=== PATIENT | female | born 1990 | race Caucasian/White ===

== ENCOUNTER 2024-02-24 16:57 | Inpatient (IN) | payer OTHER ==
[2024-02-24] MEDS ORDERED: ONDANSETRON 4 MG/2 ML VIAL ONE ×2 (17:13→21:06)
[2024-02-24] MEDS ORDERED: NA CHLORIDE 0.9% 1,000 ML ONE ×2 (17:14→21:08)
[2024-02-24] MEDS ORDERED: MORPHINE 4 MG/ML SYR ONE (17:14)
[2024-02-24 18:00] LABS: Absolute Basophils 0.1 K/uL (0-0.5); Absolute Eosinophils 0.4 K/uL (0-0.5); Absolute Lymphocytes (CBC) 2.3 K/uL (0.7-4.9); Absolute Monocytes 1.2 K/uL (0.1-1.3); Absolute Neutrophil 10.8 K/uL (1.8-8.0); Basophils % 0.6 % (0-1.3); Eosinophils % 2.8 % (0-4.4); Hematocrit 40.3 % (36.0-45.0); Hemoglobin 13.6 g/dL (12.0-15.0); Lymphocytes % 15.3 % (15.3-44.8); MCHC 33.8 g/dL (32.0-36.0); MCV 91.8 fL (80-100); MPV 7.1 fL (7.6-11.3); Monocytes % 7.9 % (3.3-12.3); Neutrophils % 73.4 % (41.7-73.7); Platelets 329 thou/uL (152-406); RBC Red Blood Cell Count 4.39 M/uL (3.86-4.86); Red Cell Distribution Width 13.4 % (12.1-15.2)
[2024-02-24 18:16] LABS: ALT/SGPT 19 U/L (13-56); Albumin 3.2 g/dL (3.4-5.0); Albumin/Globulin Ratio 0.9 (1.1-1.8); Alkaline Phosphatase 89 U/L (45-117); Anion Gap 8.3 mEq/L (5.0-15.0); BUN Blood Urea Nitrogen 11 mg/dL (7-18); Bicarbonate 28 mEq/L (21-32); Bilirubin Total 0.3 mg/dL (0.2-1.0); Globulin 3.5 g/dL (2.3-3.5); Glomerular Filtration Rate 97 ml/min (=/>90); Glucose Level 121 mg/dL (74-106); Potassium 3.3 mEq/L (3.5-5.1); Protein, Total 6.7 g/dL (6.4-8.2); Sodium Level 137 mEq/L (136-145)
[2024-02-24 18:17] LABS: PT Prothrombin Time 10.8 SECONDS (9.5-12.5); PTT, Activated Partial Thromb 30.4 SECONDS (24.3-36.9); Protime INR 0.98
[2024-02-24 18:20] LABS: AST/SGOT < 10 U/L (15-37)
--- NOTE | 2024-02-24 18:46 | RAD REPORT ---
EXAM DESCRIPTION: US - Extremity Venous Uni Ltd - 02/24/2024 6:33 pm CLINICAL HISTORY: Pain and swelling COMPARISON: None. TECHNIQUE: Real-time sonographic evaluation of the right lower extremity deep venous system was perf ormed. FINDINGS: Normal compressibility, flow augmentation, phasic flow and spontaneous flow is identified in the right lower extremity deep venous system. No intraluminal filling defects seen. IMPRESSION: No DVT in the right lower extremity.
[2024-02-24] MEDS ORDERED: FENTANYL CITR 100 MCG/2 ML ONE (19:10)
[2024-02-24] MEDS ORDERED: CLINDAMYCIN 600MG/D5W 50 ML IV ONE (19:15)
--- NOTE | 2024-02-24 19:34 | EDPHYS ---
Physician Documentation [facility] Name: Rosalina Shankar Age: 34 yrs Sex: Female : 1990 Arrival Date: 02/24/2024 Time: 16:57 Bed 5 Private MD: ED Physician Felipe Mcadams HPI: 02/23 17:04 This 34 yrs old Female presents to ER via Unassigned with complaints of Leg Swelling, kb Leg Pain. 17:04 Pt is a 34 year old female with a history of psoriasis who presents for bilateral leg kb pain. States she has been having a flare up of psoriasis for 3 months, was put on a steroid and antibiotic 2 weeks ago, was seen here one week ago and given a steroid shot that normally helps but this time symptoms have continued to increase. Reports diffuse rash started 3-4 days ago and she developed swelling to right leg last night. Reports chills, but does not have a thermometer. Friend reports pt felt hot. . 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 - Infectious Disease History:: Denies. - Social history:: Smoking status: Patient denies any tobacco usage or history of. ROS: 17:11 Constitutional: As per HPI kb Exam: 17:26 ECG was reviewed by the Attending Physician. kb 20:10 Constitutional: This is a well developed, well nourished patient who is awake, alert, kb and in no acute distress. Head/Face: Normocephalic, atraumatic. ENT: Moist Mucous membranes Cardiovascular: Regular rate Respiratory: Respirations even and unlabored. No increased work of breathing. Talking in full sentences Abdomen/GI: Soft, non-tender. No distention Neuro: Awake and alert, GCS 15, oriented to person, place, time, and situation. Moves all extremities. Normal gait. 20:10 Skin: psoriasis plaques noted diffusely. erythema and swelling to lower extremities, worse on the right. Vital Signs: 17:13 BP 117 / 85; Pulse 117; Resp 18; Temp 98.8; Pulse Ox 98% ; Weight 77.11 kg; Height 5 as6 ft. 10 in. ; Pain 8/10; 18:05 BP 127 / 86; Pulse 101; Resp 18 S; Pulse Ox 100% on R/A; kc6 18:57 BP 149 / 84; Pulse 96; Resp 18 S; Pulse Ox 100% on R/A; kc6 19:30 BP 143 / 99; Pulse 75; Resp 17 S; Pulse Ox 99% on R/A; jw7 20:17 BP 109 / 75; Pulse 70; Resp 17 S; Pulse Ox 100% on R/A; ha1 21:00 BP 122 / 97; Pulse 86; Resp 17 S; Pulse Ox 100% on R/A; jw7 22:00 BP 137 / 85; Pulse 74; Resp 17 S; Pulse Ox 100% on R/A; jw7 17:13 Body Mass Index 24.39 (77.11 kg, 177.8 cm) as6 17:13 Pain Scale: Adult as6 MDM: 17:02 Patient medically screened. kb 17:14 Data reviewed: vital signs, nurses notes. kb 19:34 Management of patient was discussed with the following: Hospitalist: Dr Jeana conway recommends transfer for rheumatology. . 19:45 ED course: attempted transfer to [facility] and [facility]. No bankruptcy paralegal kb available at any of those facilities. . 20:16 Consideration of Admission/Observation Patient was admitted/placed on observation. kb Escalation of care including admission/observation considered. Management of patient was discussed with the following: Hospitalist: Dr Hills accepts pt for admission. Counseling: I had a detailed discussion with the patient and/or guardian regarding the historical points, exam findings, and any diagnostic results supporting the discharge/admit diagnosis, lab results, radiology results, the need for further work-up and treatment in the hospital. 02/23 17:10 Order name: Blood Culture Adult (2) kb 02/23 17:10 Order name: CBC with Diff; Complete Time: 18:15 kb 02/23 17:10 Order name: CMP; Complete Time: 18:23 kb 02/23 17:10 Order name: Lactate w/ 2H reflex if indic.; Complete Time: 18:43 kb 02/23 17:10 Order name: Protime (+inr); Complete Time: 18:18 kb 02/23 17:10 Order name: Ptt, Activated; Complete Time: 18:18 kb 02/23 20:32 Order name: Liver (Hepatic) Function EDMS 02/23 20:32 Order name: CBC with Automated Diff EDMS 02/23 20:32 Order name: CBC with Automated Diff EDMS 02/23 20:32 Order name: Comprehensive Metabolic Panel EDMS 02/23 20:32 Order name: Comprehensive Metabolic Panel EDRI 02/23 20:32 Order name: Creatine Phosphokinase EDRI 02/23 20:32 Order name: Creatine Phosphokinase EDMS 02/23 20:32 Order name: Creatine Phosphokinase EDMS 02/23 20:32 Order name: Creatine Phosphokinase EDRI 02/23 21:33 Order name: Lactate Sepsis 2 HR Follow-up; Complete Time: 21:39 EDMS 02/23 17:10 Order name: US Extremity Venous Unilateral Ltd; Complete Time: 18:50 kb 02/23 17:10 Order name: Accucheck; Complete Time: 17:55 kb 02/23 17:10 Order name: Cardiac monitoring; Complete Time: 17:26 kb 02/23 17:10 Order name: IV Saline Lock - Large Bore; Complete Time: 17:55 kb 02/23 17:10 Order name: Labs collected and sent; Complete Time: 17:55 kb 02/23 17:10 Order name: O2 Per Protocol; Complete Time: 17:26 kb 02/23 17:10 Order name: O2 Sat Monitoring; Complete Time: 17:26 kb 02/23 17:10 Order name: Vital Signs; Complete Time: 17:26 kb EC:26 Rate is 95 beats/min. Rhythm is regular. QRS [place] is Normal. [place] interval is normal at kb 132 msec. QRS interval is normal at 82 msec. QT interval is normal at 434 msec. Administered Medications: 17:55 Drug: morphine IVP or IV 4 mg IVP once over 4 mins Route: IVP; Infused Over: 4 mins; 6 Site: left wrist; 18:55 Follow up: Response: No adverse reaction; Pain is unchanged, physician notified; RASS: [facility] Alert and Calm (0) 17:55 Drug: Ondansetron IVP 4 mg IVP once; over 2 minutes Route: IVP; Site: left wrist; [facility] 18:56 Follow up: Response: No adverse reaction kc6 17:56 Drug: NS 0.9% IV 1000 ml IV at 1000 ml once Route: IV; Rate: 1000 ml; Site: left wrist; kc6 22:07 Follow up: Response: No adverse reaction; IV Status: Completed infusion; IV Intake: jw7 1000ml 19:10 Drug: fentaNYL (PF) IVP 25 mcg IVP once Route: IVP; Site: left wrist; jw7 19:30 Follow up: Response: No adverse reaction; Pain is decreased; RASS: Alert and Calm (0) ha1 19:21 Not Given (Other Intervention Used): [id number] mg IVPB once over 30 mins; (mix in jw7 50 mL) 19:22 Drug: Clindamycin IVPB 600 mg IVPB once over 30 mins; (mix in 50 mL) Route: IVPB; jw7 Infused Over: 30 mins; Site: left wrist; 19:55 Follow up: Response: No adverse reaction; IV Status: Completed infusion; IV Intake: [id number] Disposition Summary: 02/24/24 20:17 Hospitalization Ordered Notes: Hospitalization Status: Observation kb Provider: Anisa Hills Location: Telemetry/MedSurg (observation) kb Condition: Stable(02/24/24 20:17) kb Problem: new(02/24/24 20:17) kb Symptoms: are unchanged(02/24/24 20:17) kb Bed/Room Type: Standard kb Room Assignment: 220(02/24/24 20:35) sp Diagnosis - Severe sepsis without septic shock(02/24/24 20:17) kb - Cellulitis of right lower limb(02/24/24 20:17) kb - Psoriasis, unspecified(02/24/24 20:17) kb Forms: - Medication Reconciliation Form kb - SBAR form kb - Leadership Thank You Letter kb Signatures: Dispatcher [employer] Marcela Lubin, DANIEL BAEZP-Pina Adorno Ashby, RN RN as6 Marilia Melgar RN RN jw7 Jeanie Poole RN RN kc6 Farida Pelayo RN ha1 Corrections: (The following items were deleted from the chart) 17:09 17:04 Pt is a 34 year old female with a history of psoriasis who presents for . kb kb 17:11 17:11 BLOOD CULTURE*+BA.LAB.BRZ ordered. EDMS EDMS 17:11 17:11 CBC+H.LAB.BRZ ordered. EDMS EDMS 17:11 17:11 COMPREHENSIVE METABOLIC PANEL+C.LAB.BRZ ordered. EDMS EDMS 17:11 17:11 LACTATE+C.LAB.BRZ ordered. EDMS EDMS 17:11 17:11 PROTIME (+INR)+COAG.LAB.BRZ ordered. EDMS EDMS 17:11 17:11 PTT, ACTIVATED+COAG.LAB.BRZ ordered. EDMS EDMS 20:17 19:33 Dr kb kb 20:17 19:33 [facility] kb kb 20:17 19:33 Higher level of care kb kb 20:17 19:33 Stable kb kb 20:17 19:33 new kb kb 20:17 19:33 are unchanged kb kb 20:17 19:33 Cellulitis of right lower limb kb kb 20:17 19:33 Severe sepsis without septic shock kb kb 20:17 19:33 Psoriasis, unspecified kb kb 20:35 20:17 kb sp
--- NOTE | 2024-02-24 19:34 | ER ---
Nurse's Notes [facility] Name: Rosalina Shankar Age: 34 yrs Sex: Female : 1990 Arrival Date: 02/24/2024 Time: 16:57 Bed 5 Private MD: Diagnosis: Severe sepsis without septic shock;Cellulitis of right lower limb;Psoriasis, unspecified Presentation: 02/23 17:14 Chief complaint: Patient states: have a bad psoriasis flair up and right leg swelling as6 that just started. Coronavirus screen: At this time, the client does not indicate any symptoms associated with coronavirus-19. Ebola Screen: No symptoms or risks identified at this time. Initial Sepsis Screen: Does the patient meet any 2 criteria? No. Patient's initial sepsis screen is negative. Does the patient have a suspected source of infection? No. Patient's initial sepsis screen is negative. Risk Assessment: Do you want to hurt yourself or someone else? Patient reports no desire to harm self or others. Onset of symptoms was February 24, 2024. 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 - Infectious Disease History:: Denies. - Social history:: Smoking status: Patient denies any tobacco usage or history of. Screenin:04 [facility] ED Fall Risk Assessment (Adult) History of falling in the last 3 months, kc6 including since admission No falls in past 3 months (0 pts) Confusion or Disorientation No (0 pts) Intoxicated or Sedated No (0 pts) Impaired Gait No (0 pts) Mobility Assist Device Used No (0 pt) Altered Elimination No (0 pt) Score/Fall Risk Level 0 - 2 = Low Risk. Abuse screen: Denies threats or abuse. Denies injuries from another. Nutritional screening: No deficits noted. Tuberculosis screening: No symptoms or risk factors identified. Assessment: 18:05 General: Appears in no apparent distress. uncomfortable, well developed, Behavior is kc6 cooperative, anxious, crying. Pain: Complains of pain in back, chest, abdomen, right arm, left arm, right leg and left leg Pain currently is 10 out of 10 on a pain scale. Quality of pain is described as throbbing. Neuro: Level of Consciousness is awake, alert, obeys commands, Oriented to person, place, time, situation, Appropriate for age. Cardiovascular: Capillary refill < 3 seconds. Respiratory: Airway is patent Trachea midline Respiratory effort is even, unlabored, Respiratory pattern is regular, symmetrical. GI: No signs and/or symptoms were reported involving the gastrointestinal system. : No signs and/or symptoms were reported regarding the genitourinary system. EENT: No signs and/or symptoms were reported regarding the EENT system. Derm: Skin is fragile, Skin is dry, Skin is red, Skin temperature is warm Rash noted that is itchy, red, on back, chest, abdomen, right arm, left arm, right leg and left leg. Musculoskeletal: Circulation, motion, and sensation intact. Range of motion: intact in all extremities, Swelling present in right leg. 18:57 Reassessment: Patient appears in no apparent distress at this time. No changes from kc6 previously documented assessment. Patient and/or family updated on plan of care and expected duration. Pain level reassessed. Patient is alert, oriented x 3, equal unlabored respirations, skin warm/dry/pink. 19:00 General: Appears in no apparent distress. uncomfortable, Behavior is calm, cooperative. jw7 Pain: Complains of pain in left leg and right leg and left arm and right arm and abdomen and chest and back Pain does not radiate. Pain currently is 8 out of 10 on a pain scale. Quality of pain is described as throbbing, Pain began gradually, Is continuous. Neuro: Level of Consciousness is awake, alert, obeys commands, Oriented to person, place, time, situation, Appropriate for age. Cardiovascular: Capillary refill < 3 seconds Clubbing of nail beds is absent JVD is absent Patient's skin is warm and dry. Respiratory: Airway is patent Trachea midline Respiratory effort is even, unlabored, Respiratory pattern is regular, symmetrical. GI: Abdomen is flat, non-distended, Bowel sounds present X 4 quads. Abd is soft and non tender X 4 quads. : No deficits noted. No signs and/or symptoms were reported regarding the genitourinary system. EENT: No deficits noted. No signs and/or symptoms were reported regarding the EENT system. Derm: Skin is fragile, Skin is dry, Skin is red, Skin temperature is warm Rash noted that is itchy, red, on left leg and right leg and left arm and right arm and abdomen and chest and back. Musculoskeletal: Circulation, motion, and sensation intact. Range of motion: intact in all extremities, Swelling present in right leg. 20:05 Reassessment: Patient and/or family updated on plan of care and expected duration. Pain ha1 level reassessed. Patient is alert, oriented x 3, equal unlabored respirations, skin warm/dry/pink. 21:00 Reassessment: Patient appears in no apparent distress at this time. No changes from 7 previously documented assessment. Patient and/or family updated on plan of care and expected duration. Pain level reassessed. Patient is alert, oriented x 3, equal unlabored respirations, skin warm/dry/pink. 22:00 Reassessment: Patient appears in no apparent distress at this time. No changes from jw7 previously documented assessment. Patient and/or family updated on plan of care and expected duration. Pain level reassessed. Patient is alert, oriented x 3, equal unlabored respirations, skin warm/dry/pink. Vital Signs: 17:13 BP 117 / 85; Pulse 117; Resp 18; Temp 98.8; Pulse Ox 98% ; Weight 77.11 kg; Height 5 as6 ft. 10 in. ; Pain 8/10; 18:05 BP 127 / 86; Pulse 101; Resp 18 S; Pulse Ox 100% on R/A; kc6 18:57 BP 149 / 84; Pulse 96; Resp 18 S; Pulse Ox 100% on R/A; kc6 19:30 BP 143 / 99; Pulse 75; Resp 17 S; Pulse Ox 99% on R/A; jw7 20:17 BP 109 / 75; Pulse 70; Resp 17 S; Pulse Ox 100% on R/A; ha1 21:00 BP 122 / 97; Pulse 86; Resp 17 S; Pulse Ox 100% on R/A; jw7 22:00 BP 137 / 85; Pulse 74; Resp 17 S; Pulse Ox 100% on R/A; jw7 17:13 Body Mass Index 24.39 (77.11 kg, 177.8 cm) as6 17:13 Pain Scale: Adult as6 ED Course: 17:00 Patient arrived in ED. mg5 17:01 Marcela Ramon FNP-C is [facility]. kb 17:01 Felipe Mcadams MD is Attending Physician. kb 17:13 Sadia Lira, RN is Primary Nurse. db 17:13 Arm band placed on. as6 17:15 Triage completed. as6 17:26 EKG done, by ED staff, reviewed by Marcela SANCHEZ. kc6 17:33 Missed attempt(s): 22 gauge in right wrist. Bleeding controlled, band aid applied, sm8 catheter tip intact. 17:35 Patient has correct armband on for positive identification. Placed in gown. Bed in low kc6 position. Call light in reach. Side rails up X 1. Adult w/ patient. Pulse ox on. NIBP on. Door closed. Noise minimized. Lights dimmed. 17:35 Inserted saline lock: 22 gauge in left wrist, using aseptic technique. Blood collected. kc6 18:35 Extremity Venous Unilateral Ltd In Process Unspecified. EDMS 19:00 Provided Education on: Use of Call Light. jw7 19:[address] [facility] transfer talked to Amy Rhheumatology. sp 19:32 called [facility] talked to Anastasiya guerra Rheumatology. sp 19:42 called [facility] for transfer talked to Robert. sp 19:44 per [facility] mari beds at [facility] at this time. sp 20:17 Anisa Hills MD is Hospitalizing Provider. kb 22:07 No provider procedures requiring assistance completed. Patient admitted, IV remains in jw7 place. Administered Medications: 17:55 Drug: morphine IVP or IV 4 mg IVP once over 4 mins Route: IVP; Infused Over: 4 mins; kc6 Site: left wrist; 18:55 Follow up: Response: No adverse reaction; Pain is unchanged, physician notified; RASS: kc6 Alert and Calm (0) 17:55 Drug: Ondansetron IVP 4 mg IVP once; over 2 minutes Route: IVP; Site: left wrist; kc6 18:56 Follow up: Response: No adverse reaction kc6 17:56 Drug: NS 0.9% IV 1000 ml IV at 1000 ml once Route: IV; Rate: 1000 ml; Site: left wrist; kc6 22:07 Follow up: Response: No adverse reaction; IV Status: Completed infusion; IV Intake: jw7 1000ml 19:10 Drug: fentaNYL (PF) IVP 25 mcg IVP once Route: IVP; Site: left wrist; jw7 19:30 Follow up: Response: No adverse reaction; Pain is decreased; RASS: Alert and Calm (0) ha1 19:21 Not Given (Other Intervention Used): [id number] mg IVPB once over 30 mins; (mix in jw7 50 mL) 19:22 Drug: Clindamycin IVPB 600 mg IVPB once over 30 mins; (mix in 50 mL) Route: IVPB; jw7 Infused Over: 30 mins; Site: left wrist; 19:55 Follow up: Response: No adverse reaction; IV Status: Completed infusion; IV Intake: [id number] Medication: 22:08 VIS not applicable for this client. jw7 Intake: 19:55 IV: 50ml; Total: 50ml. ha1 22:07 IV: 1000ml; Total: 1050ml. jw7 Outcome: 19:33 ER care complete, transfer ordered by . zoraida 20:17 Decision to Hospitalize by Provider. kb 22:07 Admitted to Med/surg accompanied by tech, via stretcher, room 220, jw7 22:07 Condition: stable 22:07 Instructed on the need for admit, Demonstrated understanding of instructions, 22:08 Patient left the ED. jw7 Signatures: Dispatcher [employer] EDMS Marcela Ramon, DIAZO TECHNICIAN-C DIAZO TECHNICIAN-CkPina Bobby Ashby, RN RN as6 Marilia Melgar RN RN jw7 Farida Pelayo RN RN ha1 Jeanie Poole RN RN [email or web address] Sadia Lira RN RN Jolene Wade [place]x [place] 5 Corrections: (The following items were deleted from the chart) 19:31 19:24 called [facility]'s transfer talked to Andrea and no Rhheumatology jose garcia
--- NOTE | 2024-02-24 20:25 | P.HP ---
Certification for Inpatient Patient admitted to: Inpatient With expected LOS: >2 Midnights Patient will require the following post-hospital care: None Practitioner: I am a practitioner with admitting privileges, knowledge of patient current condition, hospital course, and medical plan of care. Services: Services provided to patient in accordance with Admission requirements found in Title 42 Section 412.3 of the Code of Federal Regulations Patient History Date of Service: 02/24/24 Reason for admission: Leg pain and generalized rash History of Present Illness: 34-year-old female with past medical history of uncontrolled psoriasis, previous psoriasis arthritis, previously followed with rheumatology at [facility], previously was on Skyrizi stopped taking over a year ago due to lack of insurance; developed worsening psoriatic rash with erythematous patches all over the body. She presented to the ED today because of worsening pain redness and swelling of bilateral knees. She states symptoms are similar to her previous psoriatic arthritis flareup. She states she was seen in an emergency room 1 week ago and I will prescribe Solu-Medrol pack which she has taking with no improvement in symptoms. Her bilateral knee pain continue to worsen associated with worsening redness of bilateral lower legs. She denies any nausea or vomiting she denies any fever or chills. She rated pain in the knees as well as all over the legs and generalized body as about 9-10 out of 10. 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 On arrival in the ED vital signs were stable afebrile, WBC was 14 with left shift, BMP was unremarkable except for glucose of 131, lactic acid was elevated at 2.2. Doppler ultrasound of the bilateral lower extremity shows no DVT. Attempt was made to transfer patient to center with available rheumatology but was subsequently declined. She has been admitted for further management. Blood culture x 2 have been obtained. Clindamycin and IV morphine will give a BPSD continue IM Dilaudid was also given in the emergency room Home medications list reviewed: Yes - Past Medical/Surgical History Has patient received pneumonia vaccine in the past: No -: Psoriasis -: Psoriatic arthritis Past Surgical History: Reviewed- Non-Contributory -: None - Family History Family History: Reviewed- Non-Contributory - Social History Smoking Status: Never smoker Smoking therapy provided: No Patient receptive to therapy: No Alcohol use: No CD- Drugs: No Caffeine use: No Place of Residence: Home Review of Systems General: Weakness Musculoskeletal: Leg Pain, Foot Pain Integumentary: Rash, Lesions Physical Examination - Physical Exam General: Alert, In no apparent distress, Oriented x3, Cooperative (-Young female) HEENT: Atraumatic, Normocephalic, PERRLA Neck: 2+ carotid pulse no bruit, JVD not distended, No Thyromegaly Respiratory: Clear to auscultation bilaterally, Normal air movement Cardiovascular: No edema, Regular rate/rhythm, Normal S1 S2 Gastrointestinal: Normal bowel sounds, Soft and benign, Non-distended, No ascites, No masses Musculoskeletal: Swelling, Erythema, Tenderness (Over bilateral lower extremity) Integumentary: Rash(es) (Diffuse patchy circular rash all over the body including back trunk and over bilateral extremities) Neurological: Normal speech, Normal strength at 5/5 x4 extr, Sensation intact, Cranial nerves 3-12 intact External genitalia: No edema - Studies Laboratory Data (last 24 hrs) 02/24/24 02/24/24 02/24/24 17:35 17:35 17:35 WBC 14.70 H Hgb 13.6 Hct 40.3 Plt Count 329 PT 10.8 INR 0.98 APTT 30.4 Sodium 137 Potassium 3.3 L BUN 11 Creatinine 0.82 Glucose 121 H Total Bilirubin 0.3 AST < 10 L ALT 19 Alkaline Phosphatase 89 Assessment and Plan - Problems (Diagnosis) (1) Psoriasis geographica Current Visit: Yes Status: Acute (2) Psoriatic arthritis of multiple joints Current Visit: Yes Status: Acute - Plan Impression Acute psoriatic arthritis with flare Lower extremity erythemapossibly due to psoriatic arthritis versus cellulitis Lactic acidemia/sepsis Intractable bilateral knee pain Plan Will admit patient to observation Start empirical antibiotics with Vanco Follow blood culture x 2 Pain control with IV morphine as needed As needed medication for nausea Generalized psoriasis with failure of her oral steroids, will do IV steroids now and follow Patient may benefit from transfer or outpatient visit to center with rheumatology, may benefit from nonsteroid immunosuppressive therapy given generalized pattern of psoriasis. Gentle IV fluid Follow lactic acid trend Possible DC in a.m. if negative blood culture Lovenox for DVT prophylaxis Total time spent in evaluation of patient discussion, regarding possibility of more severe immunosuppressive therapy required as well as rheumatology input explained to patient. Since not been accepted at higher levels of care at this time, will admit temporarily for empirical management for now - Advance Directives Does patient have a Living Will: No Does patient have a Durable POA for Healthcare: No Time Spent Managing Pts Care (In Minutes): 70
[2024-02-24] MEDS ORDERED: ACETAMINOPHEN 500 MG TAB PO PRN (20:26)
[2024-02-24] MEDS: POTASSIUM CL SA 10 MEQ TAB PO ONE (20:31)
[2024-02-24] MEDS: FAMOTIDINE 20 MG TAB PO SCH (21:00)
[2024-02-24] MEDS: VANCOMYCIN 1 GM in NA CHLORIDE 0.9% 250 ML IVPB SCH (21:00)
[2024-02-24] MEDS: NA CHLORIDE 0.9% 1,000 ML IV SCH (21:00)
[2024-02-24] MEDS ORDERED: VANCOMYCIN 1 GM/VIAL ONE (21:06)
[2024-02-24] MEDS ORDERED: FAMOTIDINE 20 MG TAB ONE (21:06)
[2024-02-24] MEDS ORDERED: MORPHINE 2 MG/ML SYR ONE (21:07)
[2024-02-24] MEDS ORDERED: POTASSIUM CL SA 10 MEQ TAB PO ONE (21:07)
[2024-02-24] MEDS ORDERED: NA CHLORIDE 0.9% 250 ML ONE (21:08)
[2024-02-24] MEDS: MORPHINE 2 MG/ML SYR IV PRN (21:26)
[2024-02-24] MEDS: ONDANSETRON 4 MG/2 ML VIAL IV PRN (21:27)
[2024-02-24] MEDS: VANCOMYCIN 500 MG in NA CHLORIDE 0.9% 100 ML IVPB ONE (21:30)
[2024-02-24] MEDS: Oxycodone HCl/Acetaminophen 5/325 MG TAB PO PRN (22:21)
[2024-02-24 22:27] VITALS: O2SAT 100
[2024-02-24] MEDS: LORAZEPAM 1 MG TABLET PO ONE (22:44)
[2024-02-24 23:36] VITALS: BMI 24.3
[2024-02-25] MEDS: METHYLPREDNISOLONE 125 MG INJ IV SCH (00:09)
[2024-02-25] MEDS: MORPHINE 4 MG/ML SYR IV PRN (01:53)
[2024-02-25 05:08] LABS: Absolute Basophils 0.1 K/uL (0-0.5); Absolute Eosinophils 0.1 K/uL (0-0.5); Absolute Lymphocytes (CBC) 0.9 K/uL (0.7-4.9); Absolute Monocytes 0.3 K/uL (0.1-1.3); Absolute Neutrophil 15.1 K/uL (1.8-8.0); Basophils % 0.3 % (0-1.3); Eosinophils % 0.9 % (0-4.4); Hematocrit 38.6 % (36.0-45.0); Hemoglobin 12.7 g/dL (12.0-15.0); Lymphocytes % 5.4 % (15.3-44.8); MCH 30.4 pg (27.0-35.0); MCHC 32.9 g/dL (32.0-36.0); MCV 92.3 fL (80-100); MPV 7.7 fL (7.6-11.3); Neutrophils % 91.4 % (41.7-73.7); Platelets 298 thou/uL (152-406); RBC Red Blood Cell Count 4.18 M/uL (3.86-4.86); Red Cell Distribution Width 13.3 % (12.1-15.2)
[2024-02-25 05:35] LABS: ALT/SGPT 19 U/L (13-56); Albumin 2.9 g/dL (3.4-5.0); Albumin/Globulin Ratio 0.9 (1.1-1.8); Alkaline Phosphatase 69 U/L (45-117); Anion Gap 5.2 mEq/L (5.0-15.0); BUN Blood Urea Nitrogen 8 mg/dL (7-18); Bicarbonate 25 mEq/L (21-32); Bilirubin Total 0.3 mg/dL (0.2-1.0); Creatine Phosphokinase 45 U/L (26-192); Globulin 3.2 g/dL (2.3-3.5); Glomerular Filtration Rate 121 ml/min (=/>90); Glucose Level 126 mg/dL (74-106); Potassium 4.2 mEq/L (3.5-5.1); Protein, Total 6.1 g/dL (6.4-8.2); Sodium Level 137 mEq/L (136-145)
[2024-02-25 05:36] LABS: AST/SGOT < 10 U/L (15-37); Bilirubin Direct < 0.2 mg/dL (0-0.2)
[2024-02-25 06:07] LABS: Blood Morphology Comment NOT SEEN (NOT SEEN)
[2024-02-25 06:08] LABS: Band Neutrophils 3 % (0-1); Differential Total Cells Count 100; Eosinophils 1 % (0-3); Lymphocytes 5 % (15-42); Monocytes 3 % (0-10); Platelet Estimate ADEQ; Segmented Neutrophils 88 % (40-80)
--- NOTE | 2024-02-25 09:18 | P.PN ---
Date of Service: 02/25/24 Subjective: reports worsening bilateral lower extremity pains, redness is spreading feels deep pains to the bones / nerves. Severe burning sensation in nature feels toradol helped when she was here in the ER a few days ago redness/erythema is completely new started after her ER visit ~2 weeks ago. Has mainly been dealing with pain prior to this episode redness significantly worsened Sunday night going into Sunday. 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 diagnosed with psoriasis at age 15 was doing well on Skyrizi for a few years, then for some reason stopped it - ?insurance, ~1.5 years ago since stopping, she has slowly had worsening of her typical plaque psoriasis feels she gets "hives" every so often whe she gets stressed ~3-4 weeks ago had bad arthritic pain - saw her PCP who discussed getting her back on Skyrizi, meanwhile was given a dose of methotrexate she reports after receiving MTX, she had severely worsening of her psoriatic plaques - thicker, cracking, bleeding, painful ~1 week later she presented to urgent care/ED due to worsening plaques / pain given steroid shot and dc'd home; continued to take prednisone and clinda as presccribed now worsening after hospitalized as well avoid sytemic steroids except for prednisone taper suspect high dose systemic steroids and overuse of topical steroid set this off. possiblty methotrexate previously followed with rheumatology at [place], She does not have a current at risk specialist in [place] now. lives in [facility]; here visiting family previously was on Skyrizi for ~2 years. Stopped > 1 yr ago due to lack of insurance / cost. Venous u/s (02/24): No DVT of right lower extremity Unclear etiology - seems more inflammatory in nature. less likely infectious. toradol added (02/24) - patient feels like it helped when she was here in the ER a few days ago pain control with IV morphine / PO percocet 5/325 BP intermittently low-normal. monitor BP closely. continue empiric vanc for now (02/24-) dc vanc, can be a trigger for erythodermic psoriasis no obvious infxn taper steroids pt has received 2-3 125mg doses of solumedrol in last 2 weeks, as well as prednisone taper will do short taper, 20mg daily x2 days continue IV Fluids VTE: Ambulatory Code: Full Dispo: Home, ~2-3 days Pending better pain control / WBC improves Attempted to transfer to tertiary center with available rheumatology but was declined overnight. if worsening, can attempt transfer tomorrow discussed with patient since she received solumedrol, rash will continue to spread as we wean down steroids
[2024-02-25] MEDS: VANCOMYCIN 1.5 GM in NA CHLORIDE 0.9% 500 ML IVPB SCH (10:17)
[2024-02-25] MEDS: KETOROLAC 30 MG/ML INJ IV PRN (10:25)
[2024-02-25] MEDS: HYDROMORPHONE HCL 1 MG/ML INJ IV PRN (12:23)
--- NOTE | 2024-02-25 15:41 | CON ---
History Of Present Illness: This 34-year-old female, Rosalina Shankar, with the significant history of uncontrolled psoriasis, not on her treatment for 1 year because of funding. Patient was on Skyrizi. Patient is visiting from [facility]. Complains of knee discomfort and generalized aches and pains with the erythematous rash all across her body involving lower extremity, abdomen, chest, and back, reaching all the way up to neck. Multiple areas of patches of psoriasis are also noted by her. Past Medical History: Psoriasis and psoriatic arthritis, not on treatment. She was given steroids in the ER. Social History: Nonsmoker. Nondrinker. Family History: Noncontributory. Medications: Solu-Medrol 60 mg IV q.6 hours. Vancomycin. See MARs for other medications. Allergies: MAGNESIUM SULFATE AND PENICILLIN. Review of Systems: A 10-point review was performed. Physical Examination: Vital Signs: Temperature 97, General: Patient is sitting in bed. Family by the bedside, not in any acute cardiopulmonary distress. HEENT: Unremarkable. Neck: Supple. Lungs: Clear to auscultation. Heart: S1, S2. Regular. Abdomen: Soft, nontender. Bowel sounds present. Extremity: Trace edema. Erythematous changes noted on lower extremity, abdomen, chest and back and neck Laboratory Data: Shows WBC 16,000, most likely due to steroids. Hemoglobin 12.7, platelets 298. Chemistry shows BUN of 8, creatinine 0.6. Lactic acid 1.6. Procalcitonin pending. Assessment And Plan: Reactive psoriatic skin disease. There are patchy areas of suspicion of possible infection. Leukocytosis is most likely secondary to steroids. We will recommend to switch patient to doxycycline or Bactrim DS 1 tab p.o. b.i.d., and to be seen by Rheumatology service for further evaluation. Clinically, patient is doing better except her rash which is most likely secondary to her psoriatic disease or rheumatological condition. Consider getting a skin biopsy, if not improving. Consider transferring patient to speciality care rheumatology services currently available. We will follow the patient as needed. Thank you for consult. YUE/CHRISTOFER Voice ID: [id number] Report ID: [id number] [facility] CENTERJesica
--- NOTE | 2024-02-25 16:29 | CON ---
History Of Present Illness: The patient is a 34-year-old female. DICTATION ENDS HERE YUE/CHRISTOFER Voice ID: [id number] Report ID: [id number]
[2024-02-25] MEDS: DIPHENHYDRAMINE 50 MG/ML VIAL IV ONE (16:33)
[2024-02-25] MEDS: DIPHENHYDRAMINE 25 MG TAB/CAP PO PRN (18:41)
[2024-02-25] MEDS: PETROLATUM (AQUAPHOR) JAR 396 GRAM TOP PRN (20:58)
[2024-02-26] MEDS: ESZOPICLONE 1 MG TAB PO PRN (00:01)
[2024-02-26] MEDS: predniSONE 20 MG TAB PO SCH (08:08)
[2024-02-26] MEDS ORDERED: METHYLPREDNISOLONE 40 MG INJ IV SCH (09:00)
[2024-02-26 09:37] LABS: Absolute Eosinophils 0.3 K/uL (0-0.5); Absolute Lymphocytes (CBC) 2.3 K/uL (0.7-4.9); Absolute Monocytes 1.6 K/uL (0.1-1.3); Absolute Neutrophil 18.4 K/uL (1.8-8.0); Basophils % 0.2 % (0-1.3); Eosinophils % 1.4 % (0-4.4); Hematocrit 35.3 % (36.0-45.0); Hemoglobin 11.9 g/dL (12.0-15.0); Lymphocytes % 10.2 % (15.3-44.8); MCHC 33.7 g/dL (32.0-36.0); MPV 7.2 fL (7.6-11.3); Monocytes % 7.1 % (3.3-12.3); Neutrophils % 81.1 % (41.7-73.7); Platelets 302 thou/uL (152-406); RBC Red Blood Cell Count 3.84 M/uL (3.86-4.86); Red Cell Distribution Width 13.4 % (12.1-15.2)
[2024-02-26 09:59] LABS: Albumin 2.9 g/dL (3.4-5.0); Bilirubin Total 0.2 mg/dL (0.2-1.0); C-Reactive Protein 26.7 mg/L (<3.00); Magnesium 1.8 mg/dL (1.6-2.4); Protein, Total 5.9 g/dL (6.4-8.2)
[2024-02-26 10:30] LABS: Band Neutrophils 2 % (0-1); Blood Morphology Comment NOT SEEN (NOT SEEN); Differential Total Cells Count 100; Lymphocytes 10 % (15-42); Monocytes 8 % (0-10); Platelet Estimate ADEQ; Segmented Neutrophils 80 % (40-80)
--- NOTE | 2024-02-26 13:59 | P.PN ---
Subjective Date of Service: 02/26/24 Chief Complaint: Leg pain and generalized rash Patient is complaining of uncontrolled generalized pain and itching. She admits to IV access last night. No recorded fever. She states her rash is worse compared to yesterday. Physical Examination - Vital Signs Temperature: 99.0 F Blood Pressure: 114/58 Pulse: 75 Respirations: 16 Pulse Ox (%): 99 Assessment And Plan - Plan Physical Exam: GEN: Alert, oriented, tearful. HEENT: Normal conjunctiva, sclera anicteric, CV: Regular rate and rhythm, b/l lower extremity edema Pulm: Nonlabored respirations, clear bilaterally GI: Abdomen is soft, nontender nondistended, normal bowel sounds, no organomegaly. Integumentary: Diffuse erythema with facial involvement, psoriatic plaques in extremities chest/back, no purulent drainage. 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 She reported slowly worsening plaque psoriasis. She presented with bilateral lower extremity swelling and erythema, symptoms associated with intermittent hives, pruritus and arthritic pain. She saw her PCP about 1 month ago who discussed getting her back on Skyrizi, meanwhile was given a dose of methotrexate She reports her psoriatic plaques severely got worse with cracking, bleeding, and more pain after taking the methotrexate She then presented to urgent care and was given a shot of IV steroid, and discharge with prednisone and clindamycin. She was again given a dose of IV steroid on presentation this hospitalization. previously followed with rheumatology at [place]. She stated she lives in [facility]; here visiting family. Venous u/s (02/24): No DVT of right lower extremity Patient is currently on prednisone taper. Worsening rashes. Supportive measures with analgesics as needed. Patient is off antibiotics. Initiated transfer to tertiary center to be evaluated and treated by fine arts packer or bellows assembler. continue IV Fluids VTE: Ambulatory Code: Full Dispo: Initiated transfer to tertiary [place]
--- NOTE | 2024-02-26 15:12 | EKG ---
Test Date: 2024-02-24 Test Time: 17:23:45 Sock Knitting Machine Operator: SHANTELL MEASUREMENT RESULTS: Intervals: Rate: 95 ME: 132 QRSD: 82 QT: 346 QTc: 434 [place]: P: 83 ME: 132 QRS: 74 T: 57 INTERPRETIVE STATEMENTS: Normal sinus rhythm Normal ECG No previous ECG available for comparison Electronically Signed On 02-26-24 15:07:06 CDT by Kana Hicks
[2024-02-26] MEDS: PROMETHAZINE INJ 25 MG/ML AMP IV PRN (18:04)
[2024-02-26] MEDS: Mupirocin NASAL 2 APPL/1 GM TUBE NAS SCH (20:35)
--- NOTE | 2024-02-26 20:37 | P.DS ---
Admission Date: 02/24/24 Discharge Date: 02/26/24 Disposition: TRANSFER TO [facility] Discharge Condition: FAIR Reason for Admission: Leg pain and generalized rash Brief History of Present Illness: 34-year-old female with past medical history of uncontrolled psoriasis, previous psoriasis arthritis, previously followed with rheumatology at [place], previously was on Skyrizi stopped taking over a year ago due to lack of insurance; developed worsening psoriatic rash with erythematous patches all over the body. She presented to the ED today because of worsening pain redness and swelling of bilateral knees. She states symptoms are similar to her previous psoriatic arthritis flareup. She states she was seen in an emergency room 1 week ago and I will prescribe Solu-Medrol pack which she has taking with no improvement in symptoms. Her bilateral knee pain continue to worsen associated with worsening redness of bilateral lower legs. She denies any nausea or vomiting she denies any fever or chills. She rated pain in the knees as well as all over the legs and generalized body as about 9-10 out of 10. She does not have a current psychologist developmental in [place] now. On arrival in the ED vital signs were stable afebrile, WBC was 14 with left shift, BMP was unremarkable except for glucose of 131, lactic acid was elevated at 2.2. Doppler ultrasound of the bilateral lower extremity shows no DVT. Attempt was made to transfer patient to center with available rheumatology but was subsequently declined. She has been admitted for further management. Blood culture x 2 have been obtained. 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 She reported slowly worsening plaque psoriasis. She presented with bilateral lower extremity swelling and erythema, symptoms associated with intermittent hives, pruritus and arthritic pain. She saw her PCP about 1 month ago who discussed getting her back on Skyrizi, meanwhile was given a dose of methotrexate She reports her psoriatic plaques severely got worse with cracking, bleeding, and more pain after taking the methotrexate She then presented to urgent care and was given a shot of IV steroid, and discharge with prednisone and clindamycin. She was again given a dose of IV steroid on presentation this hospitalization. previously followed with rheumatology at [place]. She stated she lives in [facility]; here visiting family. Venous u/s (02/24): No DVT of right lower extremity Patient is currently on prednisone taper. Worsening rashes. Supportive measures with analgesics as needed. Patient is off antibiotics. Initiated transfer to tertiary center to be evaluated and treated by psychologist developmental or bleach chlorinator. Patient was accepted at [facility] and is being transferred to higher level of care Vital Signs/Physical Exam: Temp Pulse Resp BP Pulse Ox 98.1 F 71 16 123/59 L 99 02/26/24 16:00 02/26/24 16:00 02/26/24 20:32 02/26/24 16:00 02/26/24 16:00 General: Alert, In no apparent distress, Oriented x3 HEENT: Atraumatic, Normocephalic Neck: Supple Respiratory: Clear to auscultation bilaterally, Normal air movement Cardiovascular: Regular rate/rhythm, Normal S1 S2 Capillary refill: <2 Seconds Gastrointestinal: Soft and benign, W/out hepatosplenomegaly Musculoskeletal: No clubbing Integumentary: Rash(es), Tenderness/swelling Neurological: Normal speech, Sensation intact, Cranial nerves 3-12 intact Laboratory Data at Discharge: WBC 22.70 thou/uL (4.3-10.9) H 02/26/24 09:20 Hgb 11.9 g/dL (12.0-15.0) L 02/26/24 09:20 Hct 35.3 % (36.0-45.0) L 02/26/24 09:20 Plt Count 302 thou/uL (152-406) 02/26/24 09:20 PT 10.8 SECONDS (9.5-12.5) 02/24/24 17:35 INR 0.98 02/24/24 17:35 APTT 30.4 SECONDS (24.3-36.9) 02/24/24 17:35 Sodium 139 mEq/L (136-145) 02/26/24 09:20 Potassium 4.0 mEq/L (3.5-5.1) 02/26/24 09:20 BUN 9 mg/dL (7-18) 02/26/24 09:20 Creatinine 0.74 mg/dL (0.55-1.02) 02/26/24 09:20 Glucose 98 mg/dL (74-106) 02/26/24 09:20 Magnesium 1.8 mg/dL (1.6-2.4) 02/26/24 09:20 Total Bilirubin 0.2 mg/dL (0.2-1.0) 02/26/24 09:20 AST 14 U/L (15-37) L 02/26/24 09:20 ALT 26 U/L (13-56) 02/26/24 09:20 Alkaline Phosphatase 68 U/L (45-117) 02/26/24 09:20 Followup: NONE,NONE [Primary Care Provider] - Time spent managing pt's care (in minutes): 38
[2024-02-26 21:28] VITALS: BP 100/55; TEMP 97.6
== END 2024-02-26 22:00 | disposition short-term general hospital (02) | DRG 872 ==
LOC: ER 16:57 → ERHOLD 20:26 → 2ND 21:44
PROVIDERS: ADMIT Internal Medicine; ATTEND Internal Medicine
DX: A41.9 Sepsis, unspecified organism (principal); L03.115 Cellulitis of right lower limb; E87.20 Acidosis, unspecified; R65.20 Severe sepsis without septic shock; L40.50 Arthropathic psoriasis, unspecified; D72.829 Elevated white blood cell count, unspecified; T38.0X5A Adverse effect of glucocorticoids and synthetic analogues, initial encounter; Z88.0 Allergy status to penicillin; Z88.8 Allergy status to other drugs, medicaments and biological substances; Z91.148 Patient's other noncompliance with medication regimen for other reason
CPT/HCPCS: 36415; 80053; 82248; 82550; 83605; 83735; 84145; 85025; 85610; 85730; 86140; 87040; 93005; 93971; 96361; 96365; 96375; 99285; J1170; J1200; J2270; J2405; J2550; J2919; J3010; J7030; J7040; J7050; J7512